=== PATIENT | female | born 1995 | race Caucasian/White ===

== ENCOUNTER 2019-10-02 18:15 | Emergency (ER) | payer OTHER ==
[~2019-10-02] VITALS: Ht 160 cm; Wt 127.2 kg
[2019-10-02 18:20] VITALS: BP 138/77
--- NOTE | 2019-10-02 18:56 | NUR ---
PT IN XRAY THEN TO CHAIR D VIA W/C
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
--- NOTE | 2019-10-02 19:19 | NUR ---
DR MCKEON AT CHAIRSIDE.
[2019-10-02] MEDS ORDERED: KETOROLAC 30 MG/ML VIAL IM ONE (19:20)
[2019-10-02 20:09] VITALS: BP 138/77
--- NOTE | 2019-10-02 20:09 | NUR ---
Patient discharged with v/s stable. Written and verbal after care instructions given and explained. Patient alert, oriented and verbalized understanding of instructions. Ambulatory with steady gait. All questions addressed prior to discharge. ID band removed. Patient advised to follow up with PMD. Rx of VALIUM, LIDODERM, VALIUM given. Patient educated on indication of medication including possible reaction and side effects. Opportunity to ask questions provided and answered.
== END 2019-10-02 20:09 | disposition home or self-care (01) ==
LOC: MED 18:15
DX: S46.811A Strain of other muscles, fascia and tendons at shoulder and upper arm level, right arm, initial encounter (principal); V89.2XXA Person injured in unspecified motor-vehicle accident, traffic, initial encounter; Y93.89 Activity, other specified; Y92.89 Other specified places as the place of occurrence of the external cause; Y99.8 Other external cause status
CPT/HCPCS: 72050; 73030; 96372; 99283; J1885